=== PATIENT | male | born 2000 | race Caucasian/White ===

== ENCOUNTER 2020-05-04 08:55 | Emergency (ER) | payer OTHER ==
[2020-05-05 12:52] LABS: SARS-CoV-2 PCR by NAA DETECTED (NotDetected)
== END 2020-05-04 10:26 ==
LOC: ERS 08:55
DX: U07.1 COVID-19 (principal); F17.290 Nicotine dependence, other tobacco product, uncomplicated
CPT/HCPCS: 87635; 87804; 99283; U0003; U0005